=== PATIENT | male | born 1940 | race African-American/Black ===

== ENCOUNTER 2023-09-05 17:33 | Emergency (ER) | payer OTHER ==
[~2023-09-05] VITALS: Ht 177.8 cm; Wt 82.0 kg
[2023-09-05 17:36] VITALS: O2SAT 98
[2023-09-05 18:22] LABS: BASOPHILS % 0.6 % (0.0-2.0); EOSINOPHILS % 5.6 % (0.0-5.0); HEMATOCRIT. 27.1 % (42.0-52.0); HEMOGLOBIN. 8.4 g/dL (14.0-18.0); LYMPHOCYTES % 16.3 % (20.0-50.0); MEAN CORPUSCULAR HEMOGLOBIN 30.4 pg (28.0-32.0); MEAN CORPUSCULAR HGB CONC 31.1 g/dL (31.0-37.0); MEAN CORPUSCULAR VOLUME 97.9 fL (80.0-94.0); MEAN PLATELET VOLUME 8.7 fl (7.4-10.4); MONOCYTES % 9.2 % (2.0-8.0); NEUTROPHILS % 68.3 % (40.0-76.0); PLATELET 164 x1000/uL (130-400); RED BLOOD CELL COUNT 2.77 mill/uL (4.7-6.1); RED CELL DISTRIBUTION WIDTH 14.3 % (11.6-14.6); WHITE BLOOD COUNT 8.9 x1000/uL (4.5-11.0)
[2023-09-05 18:39] LABS: ALANINE AMINOTRANSFERASE 37 IU/L (10-49); ALBUMIN 4.2 g/dL (3.2-4.8); ASPARTATE AMINOTRANSFERASE 48 IU/L (<34); BILIRUBIN TOTAL 0.2 mg/dL (0.1-1.0); CALCIUM 8.6 mg/dL (8.7-10.4); CARBON DIOXIDE 23 mEq/L (21-32); CHLORIDE 106 mEq/L (98-107); CREATININE 1.8 mg/dL (0.6-1.3); GLUCOSE 95 mg/dL (70-105); POTASSIUM 5.1 mEq/L (3.5-5.1); SODIUM 137 mEq/L (136-145); TROPONIN I HIGH SENSITIVITY 16 ng/L (3.0-53); UREA NITROGEN BLOOD 53 mg/dL (9-23)
[2023-09-05 19:23] LABS: CLARITY URINE CLEAR (CLEAR); COLOR URINE YELLOW (YELLOW); GLUCOSE URINE NEGATIVE (NEGATIVE); KETONES URINE NEGATIVE (NEGATIVE); LEUKOCYTE ESTERASE URINE NEGATIVE (NEGATIVE); NITRITE URINE NEGATIVE (NEGATIVE); OCCULT BLOOD URINE NEGATIVE (NEGATIVE); PROTEIN URINE 2+ (NEGATIVE); SPECIFIC GRAVITY URINE 1.014 (1.005-1.030); UROBILINOGEN URINE 0.2 E.U./dL (0.2-1.0)
[2023-09-05 19:53] LABS: BACTERIA URINE TRACE; RBC URINE NONE SEEN /hpf (0-2); SQUAMOUS EPITHELIAL CELL URINE RARE /lpf (RARE/1+); WBC URINE NONE SEEN /hpf (0-2)
[2023-09-05] MEDS: SODIUM CHLORIDE 0.9% 1,000 ML IV ONE (20:00)
[2023-09-05 21:29] VITALS: BP 160/70; PULSE 68; RESP 18; TEMP 98.4
[2023-09-05 21:54] LABS: TROPONIN I HIGH SENSITIVITY 29 ng/L (3.0-53)
== END 2023-09-05 22:14 | disposition short-term general hospital (02) ==
LOC: ER 17:33
DX: R55 Syncope and collapse (principal); E86.0 Dehydration; E11.9 Type 2 diabetes mellitus without complications; I10 Essential (primary) hypertension; F03.90 Unspecified dementia, unspecified severity, without behavioral disturbance, psychotic disturbance, mood disturbance, and anxiety
CPT/HCPCS: 99285; 96360; 71045; 80053; 81003; 83880; 83605; 85025; 84484; 36415; 93005; J7030

== ENCOUNTER 2024-05-02 01:14 | Emergency (ER) | payer OTHER ==
[~2024-05-02] VITALS: Ht 162.6 cm; Wt 68.0 kg
[2024-05-02 01:25] VITALS: PULSE 59; RESP 18; O2SAT 100
[2024-05-02] MEDS ORDERED: PROPOFOL 10MG/ML 100ML 100 ML IV ONE (01:30)
[2024-05-02 01:39] VITALS: TEMP 35.05836
[2024-05-02 01:42] VITALS: BP 152/127; PULSE 144; RESP 54; O2SAT 65
[2024-05-02 01:47] LABS: HEMATOCRIT. 30.3 % (42.0-52.0); HEMOGLOBIN. 9.4 g/dL (14.0-18.0); MEAN CORPUSCULAR HEMOGLOBIN 31.3 pg (28.0-32.0); MEAN CORPUSCULAR HGB CONC 31.1 g/dL (31.0-37.0); MEAN CORPUSCULAR VOLUME 100.6 fL (80.0-94.0); MEAN PLATELET VOLUME 9.7 fl (7.4-10.4); PLATELET 164 x1000/uL (130-400); RED BLOOD CELL COUNT 3.01 mill/uL (4.7-6.1); RED CELL DISTRIBUTION WIDTH 14.7 % (11.6-14.6); WHITE BLOOD COUNT 12.5 x1000/uL (4.5-11.0)
[2024-05-02 01:59] LABS: DIFFERENTIAL COMMENT 1
[2024-05-02 02:05] LABS: CHLORIDE 108 mEq/L (98-107); POTASSIUM 3.8 mEq/L (3.5-5.1); SODIUM 140 mEq/L (136-145); TROPONIN I HIGH SENSITIVITY 17 ng/L (3.0-53)
[2024-05-02 02:06] LABS: CALCIUM 9.2 mg/dL (8.7-10.4); CARBON DIOXIDE 19 mEq/L (21-32)
[2024-05-02 02:11] LABS: GLUCOSE 195 mg/dL (70-105); UREA NITROGEN BLOOD 52 mg/dL (9-23)
[2024-05-02 02:13] LABS: ETHANOL BLOOD < 10 mg/dL (<10)
[2024-05-02 02:14] LABS: LACTIC ACID 7.5 mmol/L (0.4-2.0)
[2024-05-02 02:26] LABS: PLATELET ESTIMATE NORMAL
== END 2024-05-02 06:00 ==
LOC: ER 01:14
DX: I46.9 Cardiac arrest, cause unspecified (principal); R53.1 Weakness; F03.90 Unspecified dementia, unspecified severity, without behavioral disturbance, psychotic disturbance, mood disturbance, and anxiety; I10 Essential (primary) hypertension; E11.9 Type 2 diabetes mellitus without complications
CPT/HCPCS: 31500; 36415; 80048; 80320; 83605; 84484; 85025; 92950; 93005; 99291; G0480